=== PATIENT | male | born 1975 | race Two or more races ===

== ENCOUNTER 2023-01-11 07:39 | Emergency (ER) | payer OTHER ==
[~2023-01-11] VITALS: Ht 167.6 cm; Wt 75.7 kg
[2023-01-11] MEDS ORDERED: NASAL MIST126 ML (09:04)
[2023-01-11] MEDS ORDERED: MOBIC7.5 MG PO (10:21)
== END 2023-01-11 10:57 | disposition home or self-care (01) ==
LOC: ER 07:39
DX: M12.562 Traumatic arthropathy, left knee (principal)

== ENCOUNTER 2023-02-15 08:36 | Inpatient (IN) | payer OTHER ==
[~2023-02-15] VITALS: Ht 167.6 cm; Wt 77.1 kg
[~2023-02-15 08:36] MED LIST: CLONAZEPAM1 MG PO; MOBIC7.5 MG PO; NASAL MIST126 ML
[2023-02-20] MEDS ORDERED: TRAZODONE HCL100 MG (13:52)
[2023-02-20] MEDS ORDERED: QUETIAPINE FUM100 MG (13:52)
[2023-02-20] MEDS ORDERED: BUPROPION XL150 MG (13:52)
[2023-02-21] MEDS ORDERED: CEFADROXIL500 MG PO (08:01)
[2023-02-21] MEDS ORDERED: PERCOCET 5-3251 EACH PO (08:01)
[2023-02-21] MEDS ORDERED: ELIQUIS2.5 MG PO (08:01)
== END 2023-02-22 16:39 | DRG 470 ==
LOC: SURG 02-20 06:21 → O/R 02-20 06:21 → SURG 02-20 09:15 → O/R 02-20 14:17 → SURG 02-20 15:37
PROVIDERS: ADMIT Orthopaedic Surgery; ATTEND Orthopaedic Surgery
PROC: 0SRD0J9 Replacement of Left Knee Joint with Synthetic Substitute, Cemented, Open Approach (ICD-10-PCS; principal; 2023-02-20 16:00)
DX: M17.12 Unilateral primary osteoarthritis, left knee (principal); T84.84XA Pain due to internal orthopedic prosthetic devices, implants and grafts, initial encounter; M22.12 Recurrent subluxation of patella, left knee; M25.662 Stiffness of left knee, not elsewhere classified; Z96.652 Presence of left artificial knee joint